=== PATIENT | female | born 1980 ===

== ENCOUNTER 2024-06-30 22:06 | Emergency (ER) | payer MEDICAID ==
[2024-06-30 22:38] LABS: APPEARANCE,URINE CLEAR (CLEAR); BILIRUBIN,URINE NEGATIVE (NEGATIVE); COLOR,URINE YELLOW; GLUCOSE,URINE NEGATIVE (NEGATIVE); KETONES,URINE 40 mg/dL (NEGATIVE); LEUKOCYTE ESTERASE,URINE NEGATIVE (NEGATIVE); NITRITE,URINE NEGATIVE (NEGATIVE); OCCULT BLOOD,URINE TRACE-LYSED (NEGATIVE); PH,URINE 7.5 (5.0-8.0); PROTEIN,URINE NEGATIVE (NEGATIVE)
[2024-06-30 22:39] LABS: RBC,URINE 0-5 /HPF; SQUAMOUS EPITHELIAL CELLS,UR OCCASIONAL /HPF; WBC,URINE NOT SEEN /HPF
[2024-06-30] MEDS: HYDROmorphone 2 MG/ML Syringe IVPUSH ONE (23:13)
[2024-06-30] MEDS: Ondansetron 4 MG Tab.DIS PO ONE ×2 (23:15→23:23)
[2024-06-30] MEDS: HYDROmorphone 1 MG/ML Syringe IM ONE (23:15)
[2024-06-30] MEDS: Acetaminophen 500 MG Tab PO ONE (23:22)
== END 2024-06-30 23:38 ==
LOC: LB.ED 22:06
DX: O26.91 Pregnancy related conditions, unspecified, first trimester (principal); Z3A.00 Weeks of gestation of pregnancy not specified
CPT/HCPCS: 81001; 81025; 99284; A9270-GY; Q0162